=== PATIENT | female | born 1990 | race Caucasian/White ===

== ENCOUNTER 2020-02-05 14:13 | Emergency (ER) | payer OTHER ==
[~2020-02-05] VITALS: Ht 172.7 cm; Wt 97.1 kg
[2020-02-05 14:19] VITALS: Ht 172.7 cm; Wt 97.1 kg
[2020-02-05 15:19] VITALS: BP 140/86
== END 2020-02-05 15:19 | disposition home or self-care (01) ==
LOC: ED 14:13
DX: S93.491A Sprain of other ligament of right ankle, initial encounter (principal); S93.601A Unspecified sprain of right foot, initial encounter; W18.39XA Other fall on same level, initial encounter; Y93.01 Activity, walking, marching and hiking; Y92.89 Other specified places as the place of occurrence of the external cause; Y99.8 Other external cause status
CPT/HCPCS: Q0092